=== PATIENT | male | born 1950 | race Asian ===

== ENCOUNTER 2025-05-20 17:28 | Emergency (ER) | payer MEDICARE ==
[~2025-05-20] VITALS: Ht 170.2 cm; Wt 68.0 kg
[2025-05-20 17:29] VITALS: O2SAT 96
[2025-05-20] MEDS ORDERED: LIDO-53 TP (21:27)
[2025-05-20] MEDS: LIDOCAINE 5% PATCH TOP SCH (21:52)
[2025-05-20 21:53] VITALS: BP 149/88; PULSE 72; RESP 16; TEMP 36.9; O2SAT 99
== END 2025-05-20 21:54 | disposition home or self-care (01) ==
LOC: ER 17:28
DX: S32.028A Other fracture of second lumbar vertebra, initial encounter for closed fracture (principal); M80.08XA Age-related osteoporosis with current pathological fracture, vertebra(e), initial encounter for fracture; E78.00 Pure hypercholesterolemia, unspecified; W19.XXXA Unspecified fall, initial encounter; Y93.89 Activity, other specified; Y92.89 Other specified places as the place of occurrence of the external cause; Y99.8 Other external cause status
CPT/HCPCS: 72131; 99284